=== PATIENT | male | born 1945 | race Caucasian/White ===

== ENCOUNTER → 2016-09-25 | Day surgery (SDC) | payer BC ==
[2016-09-14 11:11] VITALS: Ht 175.3 cm; Wt 84.1 kg
[~2016-09-25] VITALS: Ht 175.3 cm; Wt 84.1 kg
[~2016-09-25] MED LIST: ASPEC81 PO; ATOR-26 PO; ENDOSCOPIC MARKER 5 ML SYR ONE; EpINEphrine INJ 1MG/ML AMP 1 MG/ML AMP ONE; LIDOCAINE HCL 2% 2 ML VIAL (20MG/ML) ONE; LYR100 PO; LZL25 PO; METO25TA56 PO; MIDAZOLAM HCL 1 MG/ML 2ML VIAL ONE; NTRGSL/4 UT; ONDANSETRON INJ 2 MG/ML 2 ML VIAL ONE; PRLSR20 PO; PROPOFOL IV EMULSION 10 MG/ML 20 ML VIAL IV ONE; QUIN40TA18 PO; SODIUM CHLORIDE 0.9% 500ML 500 ML IV ONE; [UNRECOGNIZED DRUG - CODE] PO
[2016-09-25 09:11] VITALS: TEMP 36.9
--- NOTE | 2016-09-25 09:29 | Endo History and Physical ---
History & Physical Date of Service: Sep 25, 2016. Chief Complaint: Screening Referring Physician: CARISA Mosley History of Present Illness 70 yo CM who presents for screening colonoscopy. Past Surgical History Hx Cardiac Surgery: Yes (HEART CATH-1 STENT PLACED) Hx Internal Defibrillator: No Hx Pacemaker: No Hx Abdominal Surgery: No Hx of Implantable Prosthesis: No Hx Post-Op Nausea and Vomiting: No Hx Cancer Surgery: No Hx Thoracic Surgery: No Hx Orthopedic: No Hx Urinary Tract Surgery: No Family History Colon CA Social History Smoking Status: Former Smoker Hx Substance Use: No Hx Alcohol Use: Yes (4-5 [employer] DAILY) Allergies Coded Allergies: Clopidogrel (Verified Allergy, Intermediate, hives, 09/14/16) and other blood thinners unsure Penicillins (Verified Allergy, Intermediate, HIVES/RASH, 09/25/16) Iodinated Diagnostic Agents (Verified Allergy, Unknown, RASH/BP DROPPED AND KIDNEY FAILURE, 09/14/16) Current Medications Reported Home Medications Medications Dose Route/Sig Max Daily Dose Days Date Category Accupril (Quinapril HCl) 40 Mg Tab 40 Mg PO QAM 09/14/16 Reported Prilosec (Omeprazole) 20 Mg Capcr 20 Mg PO QAM 09/14/16 Reported Nitrostat (Nitroglycerin) 0.4 Mg Tab 0.4 Mg UT PRN 09/14/16 Reported Lopressor (Metoprolol Tartrate) 25 Mg Tab 25 Mg PO BID 09/14/16 Reported Indapamide 2.5 Mg Tab 1 Tab PO QAM 09/14/16 Reported Lyrica (Pregabalin) 100 Mg Cap 100 Mg PO TID 30 05/30/16 Rx Aspirin EC Low Dose (Aspirin) 81 Mg Ectab 81 Mg PO QAM 30 05/30/16 Rx Effient * (Prasugrel) 10 Mg Tab 10 Mg PO QAM 08/08/11 Reported Lipitor (Atorvastatin Calcium) 80 Mg Tab 80 Mg PO QPM 01/18/10 Reported Vital Signs Weight (Kilograms): 84.09 Height (Feet): 5 Height (Inches): 9 Date Time Temp Pulse Resp B/P Pulse Ox O2 Delivery O2 Flow Rate FiO2 09/25/16 09:11 36.9 78 16 132/86 96 Room Air Physical Exam General Appearance: WD/WN, no apparent distress Respiratory/Chest: Auscultation: breath sounds normal Cardiovascular: Heart Auscultation: RRR Abdomen: Bowel Sounds: normal Inspection & Palpation: soft, non-distended, no tenderness, guarding & rebound Assessment and Plan Assessment: 70 yo CM who presents for screening colonoscopy. Plan: Proceed with colonoscopy.
--- NOTE | 2016-09-25 10:01 | Discharge Instructions ---
Endoscopy Patient Instructions Date / Procedure(s) Performed Sep 25, 2016. Colonoscopy Allergy Information Coded Allergies: Clopidogrel (Verified Allergy, Intermediate, hives, 09/14/16) and other blood thinners unsure Penicillins (Verified Allergy, Intermediate, HIVES/RASH, 09/25/16) Iodinated Diagnostic Agents (Verified Allergy, Unknown, RASH/BP DROPPED AND KIDNEY FAILURE, 09/14/16) Discharge Date / Findings Sep 25, 2016. Colon polyps Diverticulosis Internal hemorrhoids Medication Instructions Stopped Medication(s): Effient was stopped on Saturday. OK to resume all medications today as prescribed Reported Home Medications Medications Dose Route/Sig Max Daily Dose Days Date Category Accupril (Quinapril HCl) 40 Mg Tab 40 Mg PO QAM 09/14/16 Reported Prilosec (Omeprazole) 20 Mg Capcr 20 Mg PO QAM 09/14/16 Reported Nitrostat (Nitroglycerin) 0.4 Mg Tab 0.4 Mg UT PRN 09/14/16 Reported Lopressor (Metoprolol Tartrate) 25 Mg Tab 25 Mg PO BID 09/14/16 Reported Indapamide 2.5 Mg Tab 1 Tab PO QAM 09/14/16 Reported Lyrica (Pregabalin) 100 Mg Cap 100 Mg PO TID 30 05/30/16 Rx Aspirin EC Low Dose (Aspirin) 81 Mg Ectab 81 Mg PO QAM 30 05/30/16 Rx Effient * (Prasugrel) 10 Mg Tab 10 Mg PO QAM 08/08/11 Reported Lipitor (Atorvastatin Calcium) 80 Mg Tab 80 Mg PO QPM 01/18/10 Reported Provider Instructions Activity Restrictions - No exercising or heavy lifting for 24 hours. - Do not drink alcohol the day of the procedure. - Do not drive a car or operate machinery until the day after the procedure. - Do not make any important decisions or sign important papers in 24 hours after the procedure. Following Day: - Return to full activity which may include returning to work/school. Diet Start your diet with liquids and light foods (jello, soup, juice, toast). Then eat your usual diet if not nauseated. Treatment For Common After Affects For mild abdominal pain, bloating, or excessive gas: - Rest - Eat lightly - Lie on right side Follow-Up Information Follow-up with CARISA Mosley as scheduled Anesthesia Information What You Should Know You have had a procedure that required some medicine to reduce anxiety and discomfort. This treatment is called moderate sedation. After receiving the treatment, you may be sleepy, but you will be able to breathe on your own. The effects of the treatment may last for several hours. Follow these instructions along with Activity/Diet recommendations noted above: * Do NOT do anything where dizziness or clumsiness would be dangerous. * Rest quietly at home today, then you can be up and about tomorrow. * Have a responsible person stay with you the rest of today. * You may have had an I.V. today. If so, you may take the dressing off later today. Recommendations Call your doctor if: * Trouble breathing * Continuous vomiting for more than 24 hours * Temperature above 101 degrees * Severe abdominal pain or bloating * Pain not relieved by pain medicine ordered * There is increased drainage or redness from any incision * A large amount of rectal bleeding greater than 2-3 tablespoons. (If you had a polyp/s removed or have hemorrhoids, a small amount of blood - from the rectum is to be expected.) * You have any unanswered questions or concerns. IN THE EVENT OF A SERIOUS EMERGENCY, GO TO THE NEAREST EMERGENCY ROOM Your discharge instructions were prepared by provider JoseA rmando Vides. Patient Instructions Signature Page Denzel Yang Patient (or Guardian) Signature/Date: I have read and understand the instructions given to me by my caregivers. Caregiver/RN/Doctor Signature/Date: The above-named patient and/or guardian has received patient instructions on this date. + Original Patient Signature Page (only) stays with chart. Please make copy for patient.
--- NOTE | 2016-09-25 10:09 | GI REPORT ---
Procedure Date: 09/25/2016 9:34 AM Procedure: Colonoscopy Indications: Screening for colorectal malignant neoplasm Medicines: Monitored Anesthesia Care Complications: No immediate complications. Estimated Blood Loss: Estimated blood loss: none. Procedure: Pre-Anesthesia Assessment: - Prior to the procedure, a History and Physical was performed, and patient medications and allergies were reviewed. The patient's tolerance of previous anesthesia was also reviewed. The risks and benefits of the procedure and the sedation options and risks were discussed with the patient. All questions were answered, and informed consent was obtained. Prior Anticoagulants: The patient last took anticoagulant medication 5 days prior to the procedure and last took aspirin on the day of the procedure. ASA Grade Assessment: II - A patient with mild systemic disease. After reviewing the risks and benefits, the patient was deemed in satisfactory condition to undergo the procedure. After I obtained informed consent, the scope was passed under direct vision. Throughout the procedure, the patient's blood pressure, pulse, and oxygen saturations were monitored continuously. The On-site loaner was introduced through the anus and advanced to the terminal ileum. The colonoscopy was performed without difficulty. The patient tolerated the procedure well. The quality of the bowel preparation was good. The terminal ileum, ileocecal valve, appendiceal orifice, and rectum were photographed. Findings: Two sessile polyps were found in the sigmoid colon and in the transverse colon. The polyps were 5 to 6 mm in size. These polyps were removed with a hot snare. Resection and retrieval were complete. A 20 mm polyp was found in the sigmoid colon. The polyp was pedunculated. Prior to polypectomy 3 cc of [id number] epinephrine was injected into the polyp stalk. The polyp was removed with a hot snare. Resection and retrieval were complete. To prevent bleeding after the polypectomy, two hemostatic clips were successfully placed (MR conditional). There was no bleeding at the end of the procedure. Area was tattooed with an injection of 4 mL of [place]ia ink. Multiple small-mouthed diverticula were found in the sigmoid colon. Non-bleeding internal hemorrhoids were found during retroflexion. The hemorrhoids were small. Impression: - Two 5 to 6 mm polyps in the sigmoid colon and in the transverse colon, removed with a hot snare. Resected and retrieved. - One 20 mm polyp in the sigmoid colon, removed with a hot snare. Resected and retrieved. Clips (MR conditional) were placed. Tattooed. - Diverticulosis in the sigmoid colon. - Non-bleeding internal hemorrhoids. Recommendation: - Resume previous diet. - Continue present medications. - Repeat colonoscopy for surveillance based on pathology results. - Return to primary care physician as previously scheduled. Jose Armando Vides, DO 09/25/2016 10:08:51 AM This report has been signed electronically. Note Initiated On: 09/25/2016 9:34 AM I attest to the content of the Intraoperative Record and orders documented therein, exceptions below
--- NOTE | 2016-09-25 10:11 | Anesthesiology Progress Note ---
Anesthesia Post Op Note Date & Time Sep 25, 2016 at 10:11 Vital Signs Pain Intensity: 0 Vital Signs Past 12 Hours Date Time Temp Pulse Resp B/P Pulse Ox O2 Delivery O2 Flow Rate FiO2 09/25/16 10:02 68 18 149/85 95 Room Air 09/25/16 09:11 36.9 78 16 132/86 96 Room Air Notes Mental Status: alert / awake / arousable, participated in evaluation Pt Amnestic to Procedure: Yes Nausea / Vomiting: adequately controlled Pain: adequately controlled Airway Patency, RR, SpO2: stable & adequate BP & HR: stable & adequate Hydration State: stable & adequate Anesthetic Complications: no major complications apparent
[2016-09-25 10:30] VITALS: BP 139/77; PULSE 66; O2SAT 93
== END | disposition home or self-care (01) ==
LOC: C.GI 08:47
PROVIDERS: ATTEND Internal Medicine
DX: Z12.11 Encounter for screening for malignant neoplasm of colon (principal); Z80.0 Family history of malignant neoplasm of digestive organs; D12.3 Benign neoplasm of transverse colon; D12.5 Benign neoplasm of sigmoid colon; K57.30 Diverticulosis of large intestine without perforation or abscess without bleeding; K64.8 Other hemorrhoids; Z79.82 Long term (current) use of aspirin; Z95.5 Presence of coronary angioplasty implant and graft; Z91.041 Radiographic dye allergy status

== ENCOUNTER → 2017-01-11 | Outpatient (CLI) | payer BC ==
[~2017-01-11] MED LIST changes: -ENDOSCOPIC MARKER 5 ML SYR ONE; -EpINEphrine INJ 1MG/ML AMP 1 MG/ML AMP ONE; -LIDOCAINE HCL 2% 2 ML VIAL (20MG/ML) ONE; -MIDAZOLAM HCL 1 MG/ML 2ML VIAL ONE; -ONDANSETRON INJ 2 MG/ML 2 ML VIAL ONE; -PROPOFOL IV EMULSION 10 MG/ML 20 ML VIAL IV ONE; -SODIUM CHLORIDE 0.9% 500ML 500 ML IV ONE
[2017-01-11 09:59] LABS: BASO % 0.5 %; BASO ABS # 0.04 K/uL (0-0.2); COMPLETE YES; EOS % 5.9 %; HEMATOCRIT 44.8 % (42-52); IG% 0.4 %; LYMPH % 28.1 %; LYMPH ABS # 2.18 K/uL (1.2-3.4); MEAN CELL VOLUME 95.9 fL (80-100); MEAN CORPUSCULAR HEMOGLOBIN 31.9 pg (25-34); MEAN CORPUSCULAR HGB CONC 33.3 g/dl (32-36); MEAN PLATELET VOLUME 10.9 fL (7.4-10.4); NEUT % 55.1 %; PLATELET COUNT 192 K/uL (130-400); RED BLOOD COUNT 4.67 M/uL (4.7-6.1); WHITE BLOOD COUNT 7.77 K/uL (4.8-10.8)
[2017-01-11 10:33] LABS: ALT/SGPT 48 U/L (12-78); BLOOD UREA NITROGEN 16 mg/dl (7-18); BUN/CREATININE RATIO 19.3 (10-20); CALCIUM 10.3 mg/dl (8.5-10.1); CARBON DIOXIDE 32 mmol/L (21-32); CHLORIDE 107 mmol/L (98-107); CREATININE 0.82 mg/dl (0.60-1.40); GLUCOSE 117 mg/dl (70-99); SODIUM 144 mmol/L (136-145)
[2017-01-11 10:36] LABS: AST/SGOT 37 U/L (15-37); CHOLESTEROL 184 mg/dl (0-200); HDL CHOLESTEROL 62 mg/dl; LDL CHOLESTEROL CALCULATED 99 mg/dl; TRIGLYCERIDES 117 mg/dl (0-150); VERY LOW DENSITY LIPOPROT CALC 23 mg/dl
[2017-01-11 10:38] LABS: ESTIMATED AVERAGE GLUCOSE 131 mg/dl; HA1C FLAG Normal (Normal)
== END | disposition home or self-care (01) ==
LOC: C.LAB1850 09:13
PROVIDERS: ATTEND Physician Assistant
DX: E78.00 Pure hypercholesterolemia, unspecified (principal); I25.10 Atherosclerotic heart disease of native coronary artery without angina pectoris; E11.9 Type 2 diabetes mellitus without complications

== ENCOUNTER → 2017-01-21 | Outpatient (CLI) | payer BC ==
--- NOTE | 2017-01-21 09:09 | DIAGNOSTIC IMAGING REPORT ---
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 The maxillary diameter is 2.5 cm. There is no evidence of iliac artery aneurysm. IMPRESSION: No evidence of abdominal aortic aneurysm. Electronically signed by: Eddie Goncalves M.D. 01/21/2017 9:07 AM Dictated Date/Time: 01/21/2017 9:06 AM
== END | disposition home or self-care (01) ==
LOC: C.ULTR 08:45
PROVIDERS: ATTEND Physician Assistant
DX: I25.10 Atherosclerotic heart disease of native coronary artery without angina pectoris (principal)

== ENCOUNTER → 2017-04-17 | Outpatient (CLI) | payer BC ==
[2017-04-17 13:15] LABS: BASO % 0.4 %; BASO ABS # 0.03 K/uL (0-0.2); COMPLETE YES; EOS % 3.6 %; HEMATOCRIT 41.6 % (42-52); IG% 0.4 %; LYMPH % 28.2 %; LYMPH ABS # 2.25 K/uL (1.2-3.4); MEAN CORPUSCULAR HEMOGLOBIN 32.9 pg (25-34); MEAN CORPUSCULAR HGB CONC 34.6 g/dl (32-36); MEAN PLATELET VOLUME 11.1 fL (7.4-10.4); MONO % 14.9 %; NEUT % 52.5 %; PLATELET COUNT 168 K/uL (130-400); RED BLOOD COUNT 4.38 M/uL (4.7-6.1); WHITE BLOOD COUNT 7.98 K/uL (4.8-10.8)
[2017-04-17 14:04] LABS: BLOOD UREA NITROGEN 16 mg/dl (7-18); BUN/CREATININE RATIO 20.7 (10-20); CALCIUM 10.6 mg/dl (8.5-10.1); CARBON DIOXIDE 29 mmol/L (21-32); CHLORIDE 102 mmol/L (98-107); CREATININE 0.79 mg/dl (0.60-1.40); GLUCOSE 99 mg/dl (70-99); POTASSIUM 3.6 mmol/L (3.5-5.1); SODIUM 137 mmol/L (136-145)
[2017-04-17 14:22] LABS: ESTIMATED AVERAGE GLUCOSE 134 mg/dl; HA1C FLAG Normal (Normal)
== END | disposition home or self-care (01) ==
LOC: C.LAB1850 11:58
PROVIDERS: ATTEND Physician Assistant
DX: E11.9 Type 2 diabetes mellitus without complications (principal)

== ENCOUNTER → 2017-07-22 | Outpatient (CLI) | payer BC ==
[2017-07-22 12:17] LABS: ESTIMATED AVERAGE GLUCOSE 137 mg/dl; HA1C FLAG Normal (Normal)
== END | disposition home or self-care (01) ==
LOC: C.LAB1850 10:15
PROVIDERS: ATTEND Internal Medicine
DX: E78.00 Pure hypercholesterolemia, unspecified (principal)

== ENCOUNTER → 2017-07-23 | Outpatient (CLI) | payer BC ==
--- NOTE | 2017-07-23 14:22 | DIAGNOSTIC IMAGING REPORT ---
RIGHT HIP 2 VIEWS CLINICAL HISTORY: Sciatica. Right hip pain. FINDINGS: AP and frog-leg views of the right hip are correlated with pelvic CT dated 05/28/2016. The skeletal structures are osteopenic. No fracture is seen. There is mild arthritic change and joint space narrowing in the right hip. The right sacroiliac joint is normal in appearance. The overlying soft tissues are within normal limits. Surgical clips are present along the spermatic cord bilaterally. IMPRESSION: Osteopenia and minimal arthritic change as above. No acute bony abnormality is seen in the right hip. Electronically signed by: Collins Arreola M.D. 07/23/2017 2:21 PM Dictated Date/Time: 07/23/2017 2:20 PM
== END | disposition home or self-care (01) ==
LOC: C.RAD 13:57
PROVIDERS: ATTEND Internal Medicine
DX: M54.30 Sciatica, unspecified side (principal)

== ENCOUNTER 2022-03-24 22:18 | Observation (INO) ==
[2022-03-24] MEDS ORDERED: ONDANSETRON INJ 2 MG/ML 2 ML VIAL IV STA (22:57)
[2022-03-24] MEDS ORDERED: SODIUM CHLORIDE 0.9% 1000ML 1,000 ML IV SCH (23:00)
[2022-03-24 23:08] LABS: Basophils # (auto) 0.07 K/uL (0-0.2); Basophils % (auto) 0.8 %; Eosinophils # (auto) 0.33 K/uL (0-0.50); Eosinophils % (auto) 3.7 %; Hematocrit (blood only) 35.8 % (40.1-51.0); Hemoglobin 12.3 g/dl (14.0-18.0); Immature Granulocytes # (auto) 0.04 K/uL (0.00-0.02); Immature Granulocytes % (auto) 0.5 %; Lymphocytes # (auto) 2.58 K/uL (1.2-3.4); Lymphocytes % (auto) 29.1 %; Mean Corpuscular Hemoglobin 32.9 pg (25.0-34.0); Mean Corpuscular Hgb Conc 34.4 g/dL (32.0-36.0); Mean Corpuscular Volume 95.7 fL (80.0-100.0); Mean Platelet Volume 11.2 fL (9.4-12.4); Monocytes # (auto) 0.86 K/uL (0.24-0.82); Monocytes % (auto) 9.7 %; Neutrophils % (auto) 56.2 %; Platelet Count 162 K/uL (130-400); RDW Coefficient of Variation 13.2 % (11.5-14.5); RDW Standard Deviation 46.1 fL (36.4-46.3); Red Blood Count 3.74 M/uL (4.63-6.08); White Blood Count 8.88 K/ul (4.8-10.8)
--- NOTE | 2022-03-24 23:17 | Emergency Department Note ---
Impression & Plan Hypotension, DAKOTA (acute kidney injury), Syncope, Precordial chest pain, Alcohol use, Acute dehydration ED Provider Note NAME: HITESH HUNG AGE: 76 SEX: M : 1945 ARRIVES VIA: Ambulance INFORMANT: [Patient] ED PROVIDER(S): [Collins Reyez MD] CHIEF COMPLAINT: Hypotension, chest pain HISTORY OF PRESENT ILLNESS: The patient is a 76-year-old male presents to the ER with some lower blood pressure and chest pain. The patient was golfing today. He felt he was dr inking enough liquid. After the golf tournament, he had dinner. He had to drinks of scotch and some red wine. The patient went home. At home, sitting on his patio, he began developing some central chest pain that was a 7 on a scale 1 out of 10. Pain lasted 30 minutes. He did vomit once. He thinks he may have actually lost consciousness for a brief timeframe. This all began 2 hours ago. The patient currently feels better. He still is a bit tired but there is no more chest pain, he is not short of breath. He does have a history of a cardiac stent x1. The patient was in baseline health today, he had no issues throughout the golf tournament ,no chest pain or unusual shortness of breath. REVIEW OF SYSTEMS: See HPI for pertinent positives and negatives. A total of ten systems were reviewed and were otherwise negative. PMHx/PSHx: See Below SOCIAL HISTORY: See Below. PHYSICAL EXAM: GENERAL: Patient is in no acute distress. HEENT: No acute trauma, normocephalic atraumatic, mucous membranes moist, no nasal congestion, no scleral icterus. NECK: No stridor, no adenopathy, no meningismus, trachea is midline. LUNGS: Clear to auscultation bilaterally, no wheeze, no rhonchi, breath sounds equal. HEART: Without murmurs gallops or rubs, regular rate and rhythm. ABDOMEN: Soft, nontender, bowel sounds positive, no peritonitis. EXTREMITIES: No cyanosis or edema, full range of motion of all the joints without pain or difficulty, no signs for acute trauma. NEUROLOGIC: Oriented x 3, no acute motor or sensory deficits, no focal weakness. SKIN: No rash, no jaundice, no diaphoresis. Rectal: Brown stool, heme-negative. DIFFERENTIAL DIAGNOSIS: Cardiac ischemia, aortic dissection, dehydration, pulmonary embolism, pneumothorax, pneumonia, pericarditis, myocarditis, esophageal rupture, GERD, cholecystitis, pancreatitis, musculoskeletal, as well as other pathologies. EMERGENCY DEPARTMENT COURSE/PROCEDURES: ECG: Indication was chest pain. The ECG shows a normal sinus rhythm with a rate of 71. There is no ST elevation, no PVCs. The QTc is 410. Continuous Cardiac Monitoring: An order was placed for continuous cardiac monitoring. The monitor shows a rate of 71 with normal sinus rhythm. Critical Care Note: I have personally spent 40 minutes of critical care time in the direct management of this patient. This includes bedside care, interpretation of diagnostic studies, and testing, discussion with consultants, patient, and family members, and other required patient management activities. This 40 minutes is in excess of all separately billable procedures. MEDICAL DECISION MAKING: There is no leukocytosis. The patient is anemic with a hemoglobin of 12. I did perform a rectal exam, stool was brown and heme negative. There was a normal platelet count. Renal panel testing showed an elevation to the creatinine consistent with some acute kidney injury/dehydration. Lactic acid level was elevated consistent with dehydration and/or infection. Magnesium was low at 1.5. No concerning liver enzyme elevation. Patient appeared to be in a euthyroid state. Alcohol level returned at 179. COVID test returned n egative. The patient was given IV saline, 1 L. He received IV magnesium. The patient presents with what sounds like a syncopal episode, some precordial chest pain and an episode of vomiting. He was found to be intoxicated with alcohol. He was in acute kidney injury and did present hypotensive. With his findings, was his presentation, further work-up is warranted. I did speak with the patient and case management, the on-call hospitalist was consulted. Patient is feeling improved since being treated here in the ED. Past Med/Surg History Medical History Arthralgia of multiple sites ASCVD (arteriosclerotic cardiovascular disease) Coronary artery disease Diverticulitis Hypercholesterolemia Hypertension Mild sleep apnea Nephrolithiasis No pertinent family history Surgical History No pertinent past surgical history Family History Father Prostate cancer Diabetes Son Diabetes Denies family history of Ovarian cancer Myocardial infarction Breast cancer Colorectal cancer Social History Smoking Status: Former smoker Tobacco Type: Cigars Second Hand Exposure: No; Hx Alcohol Use: Yes Alcohol type: hard liquor Hx Substance Use: No Preferred Language: Urdu Communication Ability: Effective Visual Impairment: No Limitations Hearing Ability: Normal [place] Required: No Beliefs That Will Affect Care: None Current Living Situation: Spouse current occupational status: employed current occupation: [employer] Safe at Home: Yes Childhood Exposure to Second-Hand Smoke: No Dental Care, Regularly: Yes Physical Activity Frequency Comment: Due to foot pain unable to excercise at the present time Seatbelt Use: always Sunscreen Use: No Assistive Devices: Glasses Allergies Allergies Allergy/AdvReac Type Severity Reaction Status Date / Time clopidogrel Allergy Intermediate hives Verified 03/24/22 23:53 Penicillins Allergy Intermediate HIVES/RASH Verified 03/24/22 23:53 Iodinated Contrast Media AdvReac Severe RASH/BP Verified 03/24/22 23:53 DROPPED AND KIDNEY FAILURE Home Meds Home Medications Medication Instructions Recorded Confirmed loratadine 10 mg tablet (Claritin) 10 mg PO DAILY PRN Congestion 01/12/20 03/24/22 cholecalciferol (vitamin D3) 25 25 mcg PO DAILY 03/08/22 03/24/22 mcg (1,000 unit) capsule metoprolol tartrate 25 mg tablet 25 mg PO DAILY 03/08/22 03/24/22 multivitamin 1 tab PO DAILY 03/08/22 03/24/22 omega [id number] oil 900 1 cap PO DAILY 03/08/22 03/24/22 mg-1,400 mg capsule,delayed release (Fish Oil) Saccharomyces boulardii 250 mg 500 mg PO DAILY 03/24/22 03/24/22 capsule aspirin 81 mg tablet,delayed 81 mg PO [id number] 03/24/22 03/24/22 release psyllium husk 3.4 gram/5.4 gram 1 tbsp PO DAILY 03/24/22 03/24/22 oral powder (Metamucil) Previous Rx's Medication Instructions Recorded prasugrel 10 mg tablet 10 mg PO DAILY #90 tabs 05/19/21 duloxetine 20 mg capsule,delayed 20 mg PO DAILY #90 caps 06/20/21 release pregabalin 100 mg capsule 100 mg PO TID #270 caps 11/03/21 atorvastatin 80 mg tablet 80 mg PO DAILY #90 tabs 12/08/21 omeprazole 20 mg capsule,delayed 20 mg PO DAILY #90 caps 01/08/22 release quinapril 40 mg tablet 40 mg PO DAILY #90 tabs 01/08/22 indapamide 1.25 mg tablet 1.25 mg PO QAM #90 tabs 03/08/22 nitroglycerin 0.4 mg sublingual 0.4 mg sublingual Q5M PRN chest 03/20/22 tablet pain #25 tabs Results & Data (ED) Vital Signs Vital Signs - 24 hr 03/24/22 22:23 03/24/22 22:33 03/24/22 22:33 Temperature 36.7 C Temperature Source Oral Pulse Rate 71 Pulse Rate [Finger] 71 Pulse Rate from SpO2 Sensor Pulse Rhythm Respiratory Rate 19 19 Respiratory Effort / Characteristics Non-Labored Spontaneous Non-Labored Spontaneous Respiratory Depth Normal Normal Blood Pressure 96/56 L Blood Pressure [Right Arm] 96/56 L Blood Pressure Mean 69 Blood Pressure Mean [Right Arm] 69 Blood Pressure Position Sitting Blood Pressure Position [Right Arm] Sitting Pulse Oximetry 94 94 94 Oxygen Delivery Method Room Air Room Air Room Air Sepsis Recent Fever Within 48 Hours No Sepsis New/Unexplained Change in Mental Status No Sepsis Action Taken by Nursing No Action Required 03/24/22 23:28 03/24/22 22:31 03/24/22 22:34 Temperature Temperature Source Pulse Rate 69 71 Pulse Rate [Finger] Pulse Rate from SpO2 Sensor 71 Pulse Rhythm Regular Respiratory Rate 21 Respiratory Effort / Characteristics Respiratory Depth Blood Pressure 92/53 L 85/49 L Blood Pressure [Right Arm] Blood Pressure Mean 66 61 Blood Pressure Mean [Right Arm] Blood Pressure Position Blood Pressure Position [Right Arm] Pulse Oximetry 95 94 Oxygen Delivery Method Room Air Sepsis Recent Fever Within 48 Hours Sepsis New/Unexplained Change in Mental Status Sepsis Action Taken by Nursing 03/24/22 22:40 03/24/22 22:50 03/24/22 23:00 Temperature Temperature Source Pulse Rate 70 69 72 Pulse Rate [Finger] Pulse Rate from SpO2 Sensor 70 69 71 Pulse Rhythm Respiratory Rate 17 12 16 Respiratory Effort / Characteristics Respiratory Depth Blood Pressure 88/51 L 93/55 L 92/54 L Blood Pressure [Right Arm] Blood Pressure Mean 63 67 66 Blood Pressure Mean [Right Arm] Blood Pressure Position Blood Pressure Position [Right Arm] Pulse Oximetry 91 93 91 Oxygen Delivery Method Sepsis Recent Fever Within 48 Hours Sepsis New/Unexplained Change in Mental Status Sepsis Action Taken by Nursing 03/24/22 23:10 03/24/22 23:20 03/24/22 23:30 Temperature Temperature Source Pulse Rate 70 70 67 Pulse Rate [Finger] Pulse Rate from SpO2 Sensor 69 71 68 Pulse Rhythm Respiratory Rate 19 17 17 Respiratory Effort / Characteristics Respiratory Depth Blood Pressure 93/44 L 93/49 L 92/54 L Blood Pressure [Right Arm] Blood Pressure Mean 60 63 66 Blood Pressure Mean [Right Arm] Blood Pressure Position Blood Pressure Position [Right Arm] Pulse Oximetry 95 95 95 Oxygen Delivery Method Sepsis Recent Fever Within 48 Hours Sepsis New/Unexplained Change in Mental Status Sepsis Action Taken by [facility] Medications Current Medication List: was personally reviewed by me Laboratory Data Attestation: I reviewed the patient's lab results. Result diagrams: 03/25/22 06:43 03/25/22 06:43 Lab Results 03/24/22 03/24/22 03/24/22 Range/Units 22:25 22:25 22:25 WBC 8.88 (4.8-10.8) K/ul RBC 3.74 L (4.63-6.08) M/uL Hgb 12.3 L (14.0-18.0) g/dl Hct 35.8 L (40.1-51.0) % MCV 95.7 (80.0-100.0) fL MCH 32.9 (25.0-34.0) pg MCHC 34.4 (32.0-36.0) g/dL RDW Std Deviation 46.1 (36.4-46.3) fL RDW Coeff of [place] 13.2 (11.5-14.5) % Plt Count 162 (130-400) K/uL MPV 11.2 (9.4-12.4) fL Immature Gran % (Auto) 0.5 % Neut % (Auto) 56.2 % Lymph % (Auto) 29.1 % [place] % (Auto) 9.7 % Eos % (Auto) 3.7 % Baso % (Auto) 0.8 % Neut # (Auto) 5.00 (1.4-6.5) K/uL Lymph # (Auto) 2.58 (1.2-3.4) K/uL [place] # (Auto) 0.86 H (0.24-0.82) K/uL Eos # (Auto) 0.33 (0-0.50) K/uL Baso # (Auto) 0.07 (0-0.2) K/uL Immature Gran # (Auto) 0.04 H (0.00-0.02) K/uL Sodium 137 (136-145) mmol/L Potassium 3.5 (3.5-5.1) mmol/L Chloride 101 (98-107) mmol/L Carbon Dioxide 24 (21-32) mmol/L Anion Gap 12 H (3-11) BUN 36 H (6-23) mg/dl Creatinine 2.03 H (0.6-1.4) mg/dl Est Cr Clr Drug Dosing 34.0 ml/min Est GFR ( Amer) 36.1 ml/min Est GFR (Non-Af Amer) 31.1 ml/min BUN/Creatinine Ratio 17.7 (10-20) Glucose 138 H (70-99(Fasting)) mg/dl Lactate (0.4-2.0) mmol/L Calcium 10.9 H (8.5-10.1) mg/dl Magnesium 1.5 L (1.7-2.4) mg/dl Total Bilirubin 0.2 (0.2-1.0) mg/dl AST 33 (13-39) U/L ALT 24 (7-52) U/L Alkaline Phosphatase 74 (34-104) U/L Troponin I High Sens 5.3 (0-20) pg/ml Total Protein 6.7 (6.0-8.3) gm/dl Albumin 4.0 (3.4-5.0) gm/dl Globulin 2.7 (2.5-4.0) gm/dl Albumin/Globulin Ratio 1.5 (0.9-2) TSH 2.539 (0.300-4.500) uIu/ml Ethyl Alcohol mg/dL (<10.0) mg/dl SARS-CoV-2 (PCR) (Negative) 08/06/22 08/06/22 08/06/22 Range/Units 22:25 23:02 23:27 WBC (4.8-10.8) K/ul RBC (4.63-6.08) M/uL Hgb (14.0-18.0) g/dl Hct (40.1-51.0) % MCV (80.0-100.0) fL MCH (25.0-34.0) pg MCHC (32.0-36.0) g/dL RDW Std Deviation (36.4-46.3) fL RDW Coeff of [place] (11.5-14.5) % Plt Count (130-400) K/uL MPV (9.4-12.4) fL Immature Gran % (Auto) % Neut % (Auto) % Lymph % (Auto) % [place] % (Auto) % Eos % (Auto) % Baso % (Auto) % Neut # (Auto) (1.4-6.5) K/uL Lymph # (Auto) (1.2-3.4) K/uL [place] # (Auto) (0.24-0.82) K/uL Eos # (Auto) (0-0.50) K/uL Baso # (Auto) (0-0.2) K/uL Immature Gran # (Auto) (0.00-0.02) K/uL Sodium (136-145) mmol/L Potassium (3.5-5.1) mmol/L Chloride (98-107) mmol/L Carbon Dioxide (21-32) mmol/L Anion Gap (3-11) BUN (6-23) mg/dl Creatinine (0.6-1.4) mg/dl Est Cr Clr Drug Dosing ml/min Est GFR ( Amer) ml/min Est GFR (Non-Af Amer) ml/min BUN/Creatinine Ratio (10-20) Glucose (70-99(Fasting)) mg/dl Lactate 2.9 H* (0.4-2.0) mmol/L Calcium (8.5-10.1) mg/dl Magnesium (1.7-2.4) mg/dl Total Bilirubin (0.2-1.0) mg/dl AST (13-39) U/L ALT (7-52) U/L Alkaline Phosphatase (34-104) U/L Troponin I High Sens (0-20) pg/ml Total Protein (6.0-8.3) gm/dl Albumin (3.4-5.0) gm/dl Globulin (2.5-4.0) gm/dl Albumin/Globulin Ratio (0.9-2) TSH (0.300-4.500) uIu/ml Ethyl Alcohol mg/dL 179.3 H (<10.0) mg/dl SARS-CoV-2 (PCR) NEGATIVE (Negative) Administered Medications Discontinued Medications Atorvastatin Calcium (Atorvastatin 40 Mg Tab) 80 mg PO DAILY JIM Stop: 04/24/22 08:59 Last Admin: 03/25/22 08:03 Dose: 80 mg Documented By: JAKI Duloxetine HCl (Duloxetine Hcl 20 Mg Cap) 20 mg PO DAILY JIM Stop: 04/24/22 08:59 Last Admin: 03/25/22 08:04 Dose: Not Given Documented By: JAKI Sodium Chloride (Nss 1000ml) 1,000 mls @ 999 mls/hr IV .Q1H1M JIM Stop: 03/25/22 00:00 Last Infusion: 03/24/22 23:16 Dose: 0 mls/hr Documented By: Admin: 03/24/22 23:16 Dose: 999 mls/hr Documented By: CHARLES Magnesium Sulfate/Dextrose (Magnesium Sulfate / D5w) 1 gm in 100 mls @ 100 mls/hr IV NOW STA Stop: 03/25/22 01:03 Last Infusion: 03/25/22 01:28 Dose: 0 mls/hr Documented By: Admin: 03/25/22 00:12 Dose: 100 mls/hr Documented By: CARLOS A Sodium Chloride (Nss 1000ml) 500 mls @ 999 mls/hr IV .Q31M ONE Stop: 03/25/22 00:34 Last Infusion: 03/25/22 01:29 Dose: 0 mls/hr Documented By: Admin: 03/25/22 00:13 Dose: 999 mls/hr Documented By: CARLOS A Sodium Chloride (Nss 1000ml) 1,000 mls @ 80 mls/hr IV .[id number] JIM Stop: 03/25/22 13:44 Last Infusion: 03/25/22 14:02 Dose: 0 mls/hr Documented By: Admin: 03/25/22 01:38 Dose: 80 mls/hr Documented By: CHARLES Magnesium Sulfate/Dextrose (Magnesium Sulfate / D5w) 1 gm in 100 mls @ 50 mls/hr IV ONE ONE Stop: 03/25/22 03:11 Last Infusion: 03/25/22 04:00 Dose: 0 mls/hr Documented By: Admin: 03/25/22 01:38 Dose: 50 mls/hr Documented By: CHARLES Magnesium Sulfate/Dextrose (Magnesium Sulfate / D5w) 1 gm in 100 mls @ 50 mls/hr IV Q2H JIM Stop: 03/25/22 20:14 Last Infusion: 03/25/22 16:05 Dose: 0 mls/hr Documented By: Admin: 03/25/22 14:37 Dose: 50 mls/hr Documented By: Infusion: 03/25/22 14:33 Dose: 50 mls/hr Documented By: Admin: 03/25/22 12:33 Dose: 50 mls/hr Documented By: JAKI Metoprolol Tartrate (Metoprolol Tartrate 25 Mg Tab) 25 mg PO DAILY JIM Stop: 04/24/22 08:59 Last Admin: 03/25/22 08:03 Dose: 25 mg Documented By: JAKI Ondansetron HCl (Ondansetron Inj 2 Mg/Ml 2 Ml Vial) 4 mg IV NOW STA Stop: 03/24/22 22:58 Last Admin: 03/24/22 23:16 Dose: Not Given Documented By: CHARLES Pantoprazole Sodium (Pantoprazole 40 Mg Tab) 40 mg PO DAILY JIM Stop: 04/24/22 08:59 Last Admin: 03/25/22 08:04 Dose: 40 mg Documented By: JAKI Prasugrel (Prasugrel Tab 10 Mg Tab) 10 mg PO DAILY JIM Stop: 04/24/22 08:59 Last Admin: 03/25/22 08:05 Dose: 10 mg Documented By: JAKI Pregabalin (Pregabalin 100 Mg Cap) 100 mg PO TID JIM Stop: 04/24/22 08:59 Last Admin: 03/25/22 13:54 Dose: 100 mg Documented By: Admin: 03/25/22 08:07 Dose: 100 mg Documented By: JAKI Psyllium Hydrophilic Mucilloid (Psyllium Or Guar Gum Fiber Powder Packet) 1 pkt PO DAILY JIM Stop: 04/24/22 08:59 Last Admin: 03/25/22 08:05 Dose: Not Given Documented By: JAKI Vitamin D (Cholecalciferol 1,000 Units 25 Mcg Tab) 1,000 units PO DAILY JIM Stop: 04/24/22 08:59 Last Admin: 03/25/22 08:05 Dose: 1,000 units Documented By: JAKI Discharge Plan Visit Data Chief Complaint: Hypotension ED Provider: Collins Reyez Discharge Problem: Hypotension, DAKOTA (acute kidney injury), Syncope, Precordial chest pain, Alcohol use, Acute dehydration Patient Disposition: Admitted As Inpatient Condition: Fair Discharge Instructions Interventions: ED Discharge Assessment Last Done: 03/25/22 02:06
[2022-03-24 23:38] LABS: Albumin Globulin Ratio 1.5 (0.9-2); BUN Creatinine Ratio 17.7 (10-20); Bilirubin,Total 0.2 mg/dl (0.2-1.0); Calcium 10.9 mg/dl (8.5-10.1); Est GFR (African American) 36.1 ml/min; Est GFR (Non-African American) 31.1 ml/min; Globulin 2.7 gm/dl (2.5-4.0); Magnesium 1.5 mg/dl (1.7-2.4); Potassium 3.5 mmol/L (3.5-5.1); Total Protein 6.7 gm/dl (6.0-8.3)
[2022-03-24 23:44] LABS: Troponin I High Sensitivity 5.3 pg/ml (0-20)
[2022-03-25] MEDS ORDERED: MAGNESIUM SULFATE / D5W 1 GM/100 ML BAG IV STA (00:04)
[2022-03-25] MEDS ORDERED: SODIUM CHLORIDE 0.9% 1000ML 500 ML IV ONE (00:04)
--- NOTE | 2022-03-25 01:11 | History & Physical Report ---
Date of Service March 25, 2022 Assessment & Plan (1) Chest pain: Plan: Chest pain/CAD/hypertension/ASCVD/stented coronary artery- The patient will be admitted to telemetry for serial cardiac enzymes, serial EKG's, cardiac rhythm monitoring and a 2-D echocardiogram with Dopplers. Patient symptomatology is somewhat difficult to completely characterize due to his active alcohol intake during this interval. Continue aspirin, atorvastatin, metoprolol tartrate, nitroglycerin sublingual as needed, prasugrel. Holding quinapril and indapamide due to acute kidney injury (2) Coronary artery disease: Plan: See above (3) Hypertension: Plan: See above (4) ASCVD (arteriosclerotic cardiovascular disease): Plan: See above (5) Hypomagnesemia: Plan: Magnesium 1.5 on admission, and potassium 3.5 Magnesium will replace with 2 g and magnesium sulfate IV. Will hold indapamide and quinapril as noted, to allow potassium to normalize as well. No ectopy on monitor, so unlikely, but still possible, that symptomatology may been related to rapid heart rate (6) Acute kidney injury: Plan: Creatinine 2.03 upon admission, with baseline 0.85. Likely combination of golfing for 2 days with insufficient water intake, alcohol use, and being on indapamide and quinapril in the situations both of which will be held. (7) Hypercholesterolemia: Plan: Continue atorvastatin 80 mg daily (8) Type 2 diabetes mellitus: Plan: On no specific treatment, and glucose was 138 upon admission (9) Peripheral neuropathy: Plan: Continue pregabalin (10) Gastroesophageal reflux disease: Plan: Continue omeprazole/pantoprazole daily (11) Alcohol intoxication: Plan: Alcohol level 179.3 upon admission Part of his symptomatology may be related to direct irritation of stomach lining and reflux by alcohol He received 2 L normal saline in ED via IV bolus, and will be placed on NSS at 80 mils per hour x1 more liter Patient remains in hospital longer than lunchtime to suppertime, will consider AWSS protocol History of Present Illness Chief Complaint: The patient presents to the emergency department with complaint of chest discomfort and lower blood pressure than normal. Primary Care Provider: Giuseppe Ramos MD The patient is a 76-year-old male with a past medical history including diabetes mellitus type 2, peripheral neuropathy, CAD, nephrolithiasis, hypercalcemia, ASCVD, hypercholesterolemia, hypertension, diverticulosis, GERD, and osteoarthritis. Patient reports that he was golfing for the past 2 days, and did not have as much fluid intake as he probably should have. At the end of day this evening, he had 2 drinks, and a glass of red wine. After sitting down on his patio, at about 2 hours prior to arrival here, he developed some centralized chest pain on a scale of 7 out of 10 that lasted about 30 minutes. He reports he did vomit once and he thinks he may have actually lost consciousness during this timeframe. He does have a history of coronary artery stent, and because of symptoms, he called family, and was brought to emergency department for a ssessment. Of note, the patient's history is considered partially reliable, as his alcohol level was 179.3 upon testing in the ED. Other significant laboratories: Calcium 10.9, magnesium 1.5, potassium 3.5, creatinine 2.03, glucose 138, hemoglobin 12.3, hematocrit 35.8, lactate 2.9. Patient received from the ED: 2 L normal saline IV bolus, Zofran 4 mg IV, magnesium 1 g IV. Patient did report feeling somewhat better after receiving IV fluid rehydration Allergies Allergy/AdvReac Type Severity Reaction Status Date / Time clopidogrel Allergy Intermediate hives Verified 03/24/22 23:53 Penicillins Allergy Intermediate HIVES/RASH Verified 03/24/22 23:53 Iodinated Contrast Media AdvReac Severe RASH/BP Verified 03/24/22 23:53 DROPPED AND KIDNEY FAILURE Home Medications Medication Instructions Recorded Confirmed Type loratadine 10 mg tablet (Claritin) 10 mg PO DAILY PRN Congestion 01/12/20 03/24/22 History prasugrel 10 mg tablet 10 mg PO DAILY #90 tabs 05/19/21 03/24/22 Rx duloxetine 20 mg capsule,delayed 20 mg PO DAILY #90 caps 06/20/21 03/24/22 Rx release pregabalin 100 mg capsule 100 mg PO TID #270 caps 11/03/21 03/24/22 Rx atorvastatin 80 mg tablet 80 mg PO DAILY #90 tabs 12/08/21 03/24/22 Rx omeprazole 20 mg capsule,delayed 20 mg PO DAILY #90 caps 01/08/22 03/24/22 Rx release quinapril 40 mg tablet 40 mg PO DAILY #90 tabs 01/08/22 03/24/22 Rx cholecalciferol (vitamin D3) 25 25 mcg PO DAILY 03/08/22 03/24/22 History mcg (1,000 unit) capsule indapamide 1.25 mg tablet 1.25 mg PO QAM #90 tabs 03/08/22 03/24/22 Rx metoprolol tartrate 25 mg tablet 25 mg PO DAILY 03/08/22 03/24/22 History multivitamin 1 tab PO DAILY 03/08/22 03/24/22 History omega 5-elz-lvf-fish oil 900 1 cap PO DAILY 03/08/22 03/24/22 History mg-1,400 mg capsule,delayed release (Fish Oil) nitroglycerin 0.4 mg sublingual 0.4 mg sublingual Q5M PRN chest 03/20/22 03/24/22 Rx tablet pain #25 tabs Saccharomyces boulardii 250 mg 500 mg PO DAILY 03/24/22 03/24/22 History capsule aspirin 81 mg tablet,delayed 81 mg PO 3XWK 03/24/22 03/24/22 History release psyllium husk 3.4 gram/5.4 gram 1 tbsp PO DAILY 03/24/22 03/24/22 History oral powder (Metamucil) Past Med/Surg History Medical History Arthralgia of multiple sites ASCVD (arteriosclerotic cardiovascular disease) Coronary artery disease Diverticulitis Hypercholesterolemia Hypertension Mild sleep apnea Nephrolithiasis No pertinent family history Surgical History No pertinent past surgical history Family History Father Prostate cancer Diabetes Son Diabetes Denies family history of Ovarian cancer Myocardial infarction Breast cancer Colorectal cancer Social History Smoking Status: Former smoker Tobacco Type: Cigars Second Hand Exposure: No; Do You Dip or Chew Tobacco: No; Tobacco Cessation Education Requested by Patient: No Hx Alcohol Use: Yes Alcohol type: hard liquor Hx Substance Use: No Preferred Language: Korean Communication Ability: Effective Visual Impairment: No Limitations Hearing Ability: Normal Infant Teacher Required: No Beliefs That Will Affect Care: None Current Living Situation: Spouse current occupational status: employed current occupation: Plating Machine Operator Other Information That Helps Us Care for You: No Feels Safe at Home: Yes Safety Concerns: Feels Safe At This Time Childhood Exposure to Second-Hand Smoke: No Dental Care, Regularly: Yes Physical Activity Frequency Comment: Due to foot pain unable to excercise at the present time Seatbelt Use: always Sunscreen Use: No Assistive Devices: Glasses Review of Systems Review of Systems: The patient denies palpitations, shortness of breath, dyspnea on exertion, cough, lower extremity swelling, sore throat, fevers, chills, sweats, diarrhea , constipation, abdominal pain, pelvic pain, blood in urine or stool, dysuria, urinary frequency or urgency, lightheadedness, dizziness, headache, rash, abnormal bruising or bleeding, imbalance, focal weakness, numbness or tingling in arms or legs, generalized arthralgias or myalgias, back or neck pain, or night sweats. The review of systems is otherwise negative other than for that already noted above, and at least 10 systems have been reviewed. Physical Exam Physical Exam: The patient is awake, alert and oriented 3, well developed and well nourished, normocephalic and atraumatic, lying in bed and in no acute distress. HEENT--PERRL, EOMI, mucous membranes and oropharynx dry. Neck--supple. No JVD. No bruits. Thyroid normal, trachea midline, no adenopath y. Heart--normal S1 and S2. No murmurs, rubs or gallops. Lungs--clear bilaterally, no respiratory distress, no accessory muscle use. Abdomen--normal bowel sounds and soft. Nontender. Nondistended, no hernias or masses, no organomegaly. Extremities--no cyanosis or clubbing. No edema. There are good distal pulses b/l. Dermatologic--normal skin turgor, normal color, no abnormal lymph nodes, no rash . Neurologic--cranial nerves II through XII grossly intact. Rheumatologic--normal range of motion. Psychiatric--normal affect. Results & Data Results & Data ([facility]) Vital Signs (Past 12 Hours) Vital Signs Temp Pulse Pulse Resp BP BP Pulse Ox 03/24/22 23:30 67 17 92/54 L 95 03/24/22 23:20 70 17 93/49 L 95 03/24/22 23:10 70 19 93/44 L 95 03/24/22 23:00 72 16 92/54 L 91 03/24/22 22:50 69 12 93/55 L 93 03/24/22 22:40 70 17 88/51 L 91 03/24/22 22:34 85/49 L 03/24/22 22:31 71 21 92/53 L 94 03/24/22 23:28 69 95 03/24/22 22:33 71 19 96/56 L 94 03/24/22 22:33 94 03/24/22 22:23 36.7 C 71 19 96/56 L 94 O2 Del Method 03/24/22 23:30 03/24/22 23:20 03/24/22 23:10 03/24/22 23:00 03/24/22 22:50 03/24/22 22:40 03/24/22 22:34 03/24/22 22:31 03/24/22 23:28 Room Air 03/24/22 22:33 Room Air 03/24/22 22:33 Room Air 03/24/22 22:23 Room Air Laboratory Results Laboratory Results WBC 8.88 K/ul (4.8-10.8) 03/24/22 22:25 RBC 3.74 M/uL (4.63-6.08) L 03/24/22 22:25 Hgb 12.3 g/dl (14.0-18.0) L 03/24/22 22:25 Hct 35.8 % (40.1-51.0) L 03/24/22 22:25 MCV 95.7 fL (80.0-100.0) 03/24/22 22:25 MCH 32.9 pg (25.0-34.0) 03/24/22 22:25 MCHC 34.4 g/dL (32.0-36.0) 03/24/22 22:25 RDW Std Deviation 46.1 fL (36.4-46.3) 03/24/22 22:25 RDW Coeff of [place]an 13.2 % (11.5-14.5) 03/24/22 22:25 Plt Count 162 K/uL (130-400) 03/24/22 22:25 MPV 11.2 fL (9.4-12.4) 03/24/22 22: Immature Gran % (Auto) 0.5 % 03/24/22: Neut % (Auto) 56.2 % 03/24/22: Lymph % (Auto) 29.1 % 03/24/22: [place] % (Auto) 9.7 % 03/24/22: Eos % (Auto) 3.7 % 03/24/22: Baso % (Auto) 0.8 % 03/24/22: Neut # (Auto) 5.00 K/uL (1.4-6.5) 03/24/22: Lymph # (Auto) 2.58 K/uL (1.2-3.4) 03/24/22: [place] # (Auto) 0.86 K/uL (0.24-0.82) H 03/24/22: Eos # (Auto) 0.33 K/uL (0-0.50) 03/24/22: Baso # (Auto) 0.07 K/uL (0-0.2) 03/24/22: Immature Gran # (Auto) 0.04 K/uL (0.00-0.02) H 03/24/22 22: Sodium 137 mmol/L (136-145) 03/24/22 22: Potassium 3.5 mmol/L (3.5-5.1) 03/24/22 22: Chloride 101 mmol/L (98-107) 03/24/22 22: Carbon Dioxide 24 mmol/L (21-32) 03/24/22 22:25 Anion Gap 12 (3-11) H 03/24/22 22:25 BUN 36 mg/dl (6-23) H 03/24/22 22:25 Creatinine 2.03 mg/dl (0.6-1.4) H 03/24/22: Est Cr Clr Drug Dosing 34.0 ml/min 03/24/22 22:25 Est GFR ( Amer) 36.1 ml/min 03/24/22 22: Est GFR (Non-Af Amer) 31.1 ml/min 03/24/22 22:25 BUN/Creatinine Ratio 17.7 (10-20) 03/24/22 22:25 Glucose 138 mg/dl (70-99(Fasting)) H 03/24/22 22:25 Lactate 2.4 mmol/L (0.4-2.0) H* 03/25/22 01:29 Calcium 10.9 mg/dl (8.5-10.1) H 03/24/22 22:25 Magnesium 1.5 mg/dl (1.7-2.4) L 03/24/22 22:25 Total Bilirubin 0.2 mg/dl (0.2-1.0) 03/24/22 22:25 AST 33 U/L (13-39) 03/24/22 22:25 ALT 24 U/L (7-52) 03/24/22 22:25 Alkaline Phosphatase 74 U/L (34-104) 03/24/22 22:25 Troponin I High Sens 5.3 pg/ml (0-20) 03/24/22 22:25 Total Protein 6.7 gm/dl (6.0-8.3) 03/24/22 22:25 Albumin 4.0 gm/dl (3.4-5.0) 03/24/22 22:25 Globulin 2.7 gm/dl (2.5-4.0) 03/24/22 22:25 Albumin/Globulin Ratio 1.5 (0.9-2) 03/24/22 22:25 TSH 2.539 uIu/ml (0.300-4.500) 03/24/22 22:25 Ethyl Alcohol mg/dL 179.3 mg/dl (<10.0) H 03/24/22 22:25 SARS-CoV-2 (PCR) NEGATIVE (Negative) 03/24/22 23:02 Code Status & VTE Plan Code Status Full code VTE Prophylaxis Plan VTE Prophylaxis will be ordered: Yes PG Care Time/CCT Total # of Minutes Spent Total Time Spent with Patient: Total time spent is greater than 50% in coordination of care (as documented) at patient's floor/unit and/or counseling patient: Coding Level of Care Code 98301 Initial Inpt Care Lvl 3 Diagnoses Chest pain R07.9 Coronary artery disease I25.10 Hypertension I10 ASCVD (arteriosclerotic cardiovascular disease) I25.10 Hypomagnesemia E83.42 Acute kidney injury N17.9 Hypercholesterolemia E78.00 Type 2 diabetes mellitus E11.9 Peripheral neuropathy G62.9 Gastroesophageal reflux disease K21.9 Alcohol intoxication F10.929
[2022-03-25] MEDS ORDERED: MAGNESIUM SULFATE / D5W 1 GM/100 ML BAG IV ONE (01:12)
[2022-03-25] MEDS ORDERED: SODIUM CHLORIDE 0.9% 1000ML 1,000 ML IV SCH (01:15)
[2022-03-25] MEDS ORDERED: NITROGLYCERIN SL 0.4 MG/TAB TAB SL PRN (02:31)
[2022-03-25] MEDS ORDERED: ACETAMINOPHEN 325 MG TAB PO PRN (02:31)
[2022-03-25] MEDS ORDERED: POLYETHYLENE (MIRALAX) 17 GM PACK PO PRN (02:31)
[2022-03-25] MEDS ORDERED: ONDANSETRON INJ 2 MG/ML 2 ML VIAL IV PRN (02:31)
[2022-03-25 07:09] LABS: Basophils # (auto) 0.04 K/uL (0-0.2); Basophils % (auto) 0.6 %; Eosinophils # (auto) 0.25 K/uL (0-0.50); Eosinophils % (auto) 3.6 %; Hematocrit (blood only) 33.7 % (40.1-51.0); Hemoglobin 11.4 g/dl (14.0-18.0); Immature Granulocytes # (auto) 0.03 K/uL (0.00-0.02); Immature Granulocytes % (auto) 0.4 %; Lymphocytes # (auto) 2.23 K/uL (1.2-3.4); Lymphocytes % (auto) 32.3 %; Mean Corpuscular Hemoglobin 32.6 pg (25.0-34.0); Mean Corpuscular Hgb Conc 33.8 g/dL (32.0-36.0); Mean Corpuscular Volume 96.3 fL (80.0-100.0); Mean Platelet Volume 10.6 fL (9.4-12.4); Monocytes # (auto) 0.66 K/uL (0.24-0.82); Monocytes % (auto) 9.6 %; Neutrophils # (auto) 3.69 K/uL (1.4-6.5); Neutrophils % (auto) 53.5 %; Platelet Count 140 K/uL (130-400); RDW Coefficient of Variation 13.2 % (11.5-14.5); RDW Standard Deviation 46.6 fL (36.4-46.3)
--- NOTE | 2022-03-25 07:42 | Hospitalist Progress Note ---
Date of Service March 25, 2022 Assessment & Plan (1) Chest pain: Plan: Chest pain/CAD/hypertension/ASCVD/stented coronary artery- The patient will be admitted to telemetry for serial cardiac enzymes, serial EKG's, cardiac rhythm monitoring and a 2-D echocardiogram with Dopplers. Repeat EKG- is uncharged, normal sinus rhythm, normal ECG Repeat troponin 4.8 Patient symptomatology is somewhat difficult to completely characterize due to his active alcohol intake during this interval. Continue aspirin, atorvastatin, metoprolol tartrate, nitroglycerin sublingual as needed, prasugrel. Holding quinapril and indapamide due to acute kidney injury (2) Coronary artery disease: Plan: See above (3) Hypertension: Plan: See above (4) ASCVD (arteriosclerotic cardiovascular disease): Plan: See above (5) Hypomagnesemia: Plan: Magnesium 1.5 on admission, and potassium 3.5 Magnesium will replace with 2 g and magnesium sulfate IV. Today K= 3.9, Mg= 1.6, only increase 0.1 with 2g yesterday will give 4g with a goal to replete above 2.0 Will hold indapamide and quinapril as noted, to allow potassium to normalize as well. No ectopy on monitor, so unlikely, but still possible, that symptomatology may been related to rapid heart rate (6) Acute kidney injury: Plan: Creatinine 2.03 upon admission, with baseline 0.85. Likely combination of golfing for 2 days with insufficient water intake, alcohol use, and being on indapamide and quinapril in the situations both of which will be held. (7) Hypercholesterolemia: Plan: Continue atorvastatin 80 mg daily (8) Type 2 diabetes mellitus: Plan: On no specific treatment, and glucose was 138 upon admission (9) Peripheral neuropathy: Plan: Continue pregabalin (10) Gastroesophageal reflux disease: Plan: Continue omeprazole/pantoprazole daily (11) Alcohol intoxication: Plan: Alcohol level 179.3 upon admission Part of his symptomatology may be related to direct irritation of stomach lining and reflux by alcohol He received 2 L normal saline in ED via IV bolus, and will be placed on NSS at 80 mils per hour x1 more liter Patient remains in hospital longer than lunchtime to suppertime, will consider [facility] protocol Admission and Anticipated Discharge Date Admission Date: March 25, 2022 Subjective Doing well this morning. No further chest pain since 30 minute episode at home yesterday afternoon. Denies dyspnea, nausea, vomiting, lightheadedness, dizziness. Physical Exam Physical Exam: The patient is awake, alert and oriented 3, well developed and well nourished, normocephalic and atraumatic, lying in bed and in no acute distress. Neck--supple. Heart--normal S1 and S2. No murmurs, rubs or gallops. Lungs--clear bilaterally, no respiratory distress, no accessory muscle use. Abdomen--normal bowel sounds and soft. Nontender. Extremities--no cyanosis or clubbing. No edema. There are good distal pulses b/l. Neurologic--cranial nerves II through XII grossly intact. Psychiatric--normal affect. Results & Data Results & Data ([facility]) Vital Signs (Past 12 Hours) Vital Signs Temp Pulse Pulse Resp BP BP Pulse Ox 03/25/22 07:05 36.4 C L 71 18 146/80 H 96 03/25/22 02:36 36.3 C L 74 15 115/75 95 03/25/22 01:29 72 17 106/55 L 92 03/24/22 23:30 67 17 92/54 L 95 03/24/22 23:20 70 17 93/49 L 95 03/24/22 23:10 70 19 93/44 L 95 03/24/22 23:00 72 16 92/54 L 91 03/24/22 22:50 69 12 93/55 L 93 03/24/22 22:40 70 17 88/51 L 91 03/24/22 22:34 85/49 L 03/24/22 22:31 71 21 92/53 L 94 03/24/22 23:28 69 95 03/24/22 22:33 71 19 96/56 L 94 03/24/22 22:33 94 03/24/22 22:23 36.7 C 71 19 96/56 L 94 O2 Del Method 03/25/22 07:05 Room Air 03/25/22 02:36 Room Air 03/25/22 01:29 03/24/22 23:30 03/24/22 23:20 03/24/22 23:10 03/24/22 23:00 03/24/22 22:50 03/24/22 22:40 03/24/22 22:34 03/24/22 22:31 03/24/22 23:28 Room Air 03/24/22 22:33 Room Air 03/24/22 22:33 Room Air 03/24/22 22:23 Room Air
[2022-03-25 07:49] LABS: Albumin Globulin Ratio 1.4 (0.9-2); Albumin Level 3.6 gm/dl (3.4-5.0); BUN Creatinine Ratio 25.8 (10-20); Bilirubin,Total 0.3 mg/dl (0.2-1.0); Calcium 9.8 mg/dl (8.5-10.1); Creatinine Clr Calc Pharmacy 53.2 ml/min; Est GFR (African American) 68.1 ml/min; Est GFR (Non-African American) 58.8 ml/min; Globulin 2.5 gm/dl (2.5-4.0); Potassium 3.9 mmol/L (3.5-5.1); Total Protein 6.1 gm/dl (6.0-8.3)
[2022-03-25] MEDS: PREGABALIN 100 MG CAP PO SCH ×2 (08:07→13:54)
[2022-03-25] MEDS ORDERED: ATORVASTATIN 40 MG TAB PO SCH (09:00)
[2022-03-25] MEDS ORDERED: PSYLLIUM or GUAR GUM FIBER POWDER PACKET PO SCH (09:00)
[2022-03-25] MEDS ORDERED: PRASugrel TAB 10 MG TAB PO SCH (09:00)
[2022-03-25] MEDS ORDERED: CHOLECALCIFEROL 1,000 UNITS 25 MCG TAB PO SCH (09:00)
[2022-03-25] MEDS ORDERED: PANTOprazole 40 MG TAB PO SCH (09:00)
[2022-03-25] MEDS ORDERED: DULoxetine HCL 20 MG CAP PO SCH (09:00)
[2022-03-25] MEDS ORDERED: METOPROLOL TARTRATE 25 MG TAB PO SCH (09:00)
--- NOTE | 2022-03-25 09:04 | Electrocardiogram Report ---
Test Reason : Blood Pressure : / mmHG Vent. Rate : 071 BPM Atrial Rate : 071 BPM P-R Int : 168 ms QRS Dur : 094 ms QT Int : 378 ms P-R-T Axes : 069 049 039 degrees QTc Int : 410 ms Poor data quality, interpretation may be adversely affected Normal sinus rhythm Normal ECG When compared with ECG of 28-MAY-2016 13:45, No significant change was found Confirmed by Abdulaziz Marin ([id number]) on 03/25/2022 9:04:06 AM Referred By: REFERRED SELF Confirmed By:Abdulaziz Marin
--- NOTE | 2022-03-25 09:04 | Electrocardiogram Report ---
Test Reason : Blood Pressure : / mmHG Vent. Rate : 069 BPM Atrial Rate : 069 BPM P-R Int : 178 ms QRS Dur : 102 ms QT Int : 390 ms P-R-T Axes : 062 039 036 degrees QTc Int : 417 ms Normal sinus rhythm Normal ECG When compared with ECG of 24-MAR-2022 22:20, No significant change was found Confirmed by Abdulaziz Marin ([id number]) on 03/25/2022 9:04:14 AM Referred By: REFERRED SELF Confirmed By:Abdulaziz Marin
--- NOTE | 2022-03-25 09:05 | XRay Report ---
XR chest 1V portable HISTORY: Atypical chest pain. weakness COMPARISON: Chest 06/09/2020. FINDINGS: The lungs are clear. Cardiac silhouette is normal in size. No pleural effusions. No pneumot horax. IMPRESSION: No acute process. ACT 112: Negative or not required by law. Electronically signed by: Jaziel Boss M.D. 03/25/2022 9:04 AM
[2022-03-25] MEDS: MAGNESIUM SULFATE / D5W 1 GM/100 ML BAG IV SCH ×2 (12:33→14:37)
--- NOTE | 2022-03-25 15:41 | Discharge Summary ---
Date of Service March 25, 2022 Admission HPI Per Admitting Provider The patient is a 76-year-old male with a past medical history including diabetes mellitus type 2, peripheral neuropathy, CAD, nephrolithiasis, hypercalcemia, ASCVD, hypercholesterolemia, hypertension, diverticulosis, GERD, and osteoarthritis. Patient reports that he was golfing for the past 2 days, and did not have as much fluid intake as he probably should have. At the end of day this evening, he had 2 drinks, and a glass of red wine. After sitting down on his patio, at about 2 hours prior to arrival here, he developed some centralized chest pain on a scale of 7 out of 10 that lasted about 30 minutes. He reports he did vomit once and he thinks he may have actually lost consciousness during this timeframe. He does have a history of coronary artery stent, and because of symptoms, he called family, and was brought to emergency department for assessment. Of note, the patient's history is considered partially reliable, as his alcohol level was 179.3 upon testing in the ED. Other significant laboratories: Calcium 10.9, magnesium 1.5, potassium 3.5, creatinine 2.03, glucose 138, hemoglobin 12.3, hematocrit 35.8, lactate 2.9. Patient received from the ED: 2 L normal saline IV bolus, Zofran 4 mg IV, m agnesium 1 g IV. Patient did report feeling somewhat better after receiving IV fluid rehydration Admission Exam Per Admitting Provider The patient is awake, alert and oriented 3, well developed and well nourished, normocephalic and atraumatic, lying in bed and in no acute distress. HEENT--PERRL, EOMI, mucous membranes and oropharynx dry. Neck--supple. No JVD. No bruits. Thyroid normal, trachea midline, no adenopathy. Heart--normal S1 and S2. No murmurs, rubs or gallops. Lungs--clear bilaterally, no respiratory distress, no accessory muscle use. Abdomen--normal bowel sounds and soft. Nontender. Nondistended, no hernias or masses, no organomegaly. Extremities--no cyanosis or clubbing. No edema. There are good distal pulses b/l. Dermatologic--normal skin turgor, normal color, no abnormal lymph nodes, no rash. Neurologic--cranial nerves II through XII grossly intact. Rheumatologic--normal range of motion. Psychiatric--normal affect. Principal Diagnosis Chest Pain Discharge Exam The patient is awake, alert and oriented 3, well developed and well nourished, normocephalic and atraumatic, lying in bed and in no acute distress. Neck--supple. Heart--normal S1 and S2. No murmurs, rubs or gallops. Lungs--clear bilaterally, no respiratory distress, no accessory muscle use. Abdomen--normal bowel sounds and soft. Nontender. Extremities--no cyanosis or clubbing. No edema. There are good distal pulses b/l. Neurologic--cranial nerves II through XII grossly intact. Psychiatric--normal affect. Discharge Data Allergies Allergy/AdvReac Type Severity Reaction Status Date / Time clopidogrel Allergy Intermediate hives Verified 03/24/22 23:53 Penicillins Allergy Intermediate HIVES/RASH Verified 03/24/22 23:53 Iodinated Contrast Media AdvReac Severe RASH/BP Verified 03/24/22 23:53 DROPPED AND KIDNEY FAILURE Consultations 03/25/22 00:24 ED Decision to Admit Stat Ordered Studies Cardiac Enzymes 03/24/22 03/25/22 03/25/22 Range/Units 22:25 06:43 06:43 AST 33 28 (13-39) U/L Troponin I High Sens 5.3 4.8 (0-20) pg/ml CBC 03/24/22 03/25/22 Range/Units 22:25 06:43 WBC 8.88 6.90 (4.8-10.8) K/ul RBC 3.74 L 3.50 L (4.63-6.08) M/uL Hgb 12.3 L 11.4 L (14.0-18.0) g/dl Hct 35.8 L 33.7 L (40.1-51.0) % Plt Count 162 140 (130-400) K/uL Neut # (Auto) 5.00 3.69 (1.4-6.5) K/uL Lymph # (Auto) 2.58 2.23 (1.2-3.4) K/uL [place] # (Auto) 0.86 H 0.66 (0.24-0.82) K/uL Eos # (Auto) 0.33 0.25 (0-0.50) K/uL Baso # (Auto) 0.07 0.04 (0-0.2) K/uL Comprehensive Metabolic Panel 03/24/22 03/25/22 Range/Units 22:25 06:43 Sodium 137 139 (136-145) mmol/L Potassium 3.5 3.9 (3.5-5.1) mmol/L Chloride 101 106 (98-107) mmol/L Carbon Dioxide 24 26 (21-32) mmol/L BUN 36 H 31 H (6-23) mg/dl Creatinine 2.03 H 1.20 D (0.6-1.4) mg/dl Glucose 138 H 108 H (70-99(Fasting)) mg/dl Calcium 10.9 H 9.8 (8.5-10.1) mg/dl AST 33 28 (13-39) U/L ALT 24 21 (7-52) U/L Alkaline Phosphatase 74 74 (34-104) U/L Total Protein 6.7 6.1 (6.0-8.3) gm/dl Albumin 4.0 3.6 (3.4-5.0) gm/dl Intake and Output 03/25/22 03/25/22 03/25/22 06:59 14:59 22:59 Intake Total 1820 / 1820 1092 / 1572 480 / 1572 Output Total 425 / 425 Balance 1820 / 1820 1092 / 1147 55 / 1147 Intake: IV 1700 / 1700 1092 / 1092 Magnesium Sulfate / D5w 1 gm In 200 / 200 100 / 100 100 ml @ 50 mls/hr IV Q2H JIM Rx#:[id number] Sodium Chloride 0.9% 1000ML 1, 1500 / 1500 992 / 992 000 ml @ 80 mls/hr IV .[id number] JIM Rx#:[id number] Oral 120 / 120 480 / 480 Output: Urine 425 / 425 Other: Weight 81.6 kg Weight Measurement Method Standing Scale Hospital Course (1) Chest pain: Chest pain/CAD/hypertension/ASCVD/stented coronary artery- Pt presented with 30 minutes of chest pain that occurred at home after golfing for 2 days. He had limited fluid intake and 3 alcoholic beverages prior to the chest pain developing. He had one episode of vomiting at home. Serial ECGs and cardiac enzymes were negative, did not indicate any acute ischemic changes. He was monitored on telemetry without any events. Echo did not show any regional wall motion abnormalities. Of note his alcohol level on admission was 179. He did not have any recurrence of his chest pain during his stay. He will follow up woth cardiology for a stress ecvho. (2) Coronary artery disease: See above (3) Hypertension: Continue home medications (4) ASCVD (arteriosclerotic cardiovascular disease): See above (5) Hypomagnesemia: Magnesium 1.5 on admission, and potassium 3.5; magnesium repleted with 2g in ED. It came up to 1.6 and was repleted with another 2g. Will hold indapamide and quinapril as noted, to allow potassium to normalize as well, can resume on discharge. (6) Acute kidney injury: Creatinine 2.03 upon admission, with baseline 0.85. Likely combination of golfing for 2 days with insufficient water intake, alcohol use, and being on indapamide and quinapril in the situations both of which will be held. Came down to 1.2 with fluids. (7) Hypercholesterolemia: Continue atorvastatin 80 mg daily (8) Type 2 diabetes mellitus: On no specific treatment, and glucose was 138 upon admission (9) Peripheral neuropathy: Continue pregabalin (10) Gastroesophageal reflux disease: Continue omeprazole/pantoprazole daily (11) Alcohol intoxication: Alcohol level 179.3 upon admission Part of his symptomatology may be related to direct irritation of stomach lining and reflux by alcohol He received 2 L normal saline in ED via IV bolus, and will be placed on NSS at 80 mils per hour x1 more liter Patient remains in hospital longer than lunchtime to suppertime, will consider AWSS protocol Total Time Total Time Spent Total Time Spent (In Minutes): <30 Discharge Plan Discharge Items Patient Disposition: Home - Self-Care Reason For Visit: CHEST PAIN, DAKOTA, HYPOMAGNESEMIA, DEHYDRATION Discharge Diagnosis: Dehydration , Chest Pain Activity: Resume your previous activity Non-emergency contact: Primary Care Provider Call non-emergency contact if: your symptoms worsen Follow-up/Referrals: Giuseppe Ramos MD [Primary Care Provider] - Diet: Regular Addtl Attending Provider Instructions: You were admitted to the hospital for chest pain. We monitored your cardiac enzymes and your ECGs (measures the cardiac activity of your heart) and did not see any signs of an acute heart attack. We would like you to follow up with your radiator mechanic. Your creatine, a number that is indicative of kidney function, was initially elevated, but improved with fluids. Make sure you continue to stay well hydrated. A discharge summary will be sent to your primary care physician to ensure continuity of care. Please bring this discharge summary with you to your next office appointment so that your provider can review it at that time. Follow-up appointments: Make a follow-up appointment with your PCP within the next week. It is very important that you follow up with them shortly after discharge from the hospital. - Make a follow up appointment with your radiator mechanic. Medications: Your medication list has been reviewed and reconciled upon discharge to ensure accuracy and continuity of care. An updated list of all your medications is included with your hospital discharge paperwork. Please review this list closely, and make note of any changes. CONTACT YOUR PRIMARY CARE PROVIDER if you experience any of the following: Difficulty following your treatment plan, or difficulty taking medications CALL 911 OR GO TO THE EMERGENCY DEPARTMENT if you experience any of the following: Sudden, severe abdominal pain or nausea/vomiting Severe chest pain, or chest pain that radiates (moves) to your jaw or arm Sudden, severe shortness of breath or difficulty breathing Thank you for allowing us to participate in your care. Discharge instructions for CHF exacerbation patients Pending Studies at Discharge: No Stand-Alone Forms: My [facility] Medications and DC Order Prescriptions: Continued prasugrel 10 mg tablet 10 mg PO DAILY Qty: 90 3RF duloxetine 20 mg capsule,delayed release(DR/EC) 20 mg PO DAILY Qty: 90 3RF atorvastatin 80 mg tablet 80 mg PO DAILY Qty: 90 3RF omeprazole 20 mg capsule,delayed release(DR/EC) 20 mg PO DAILY Qty: 90 3RF quinapril 40 mg tablet 40 mg PO DAILY Qty: 90 3RF nitroglycerin 0.4 mg tablet, sublingual 0.4 mg SL Q5M PRN (Reason: chest pain) Qty: 25 1RF pregabalin 100 mg capsule 100 mg PO TID Qty: 270 3RF metoprolol tartrate 25 mg tablet 25 mg PO DAILY cholecalciferol (vitamin D3) 25 mcg (1,000 unit) capsule 25 mcg PO DAILY multivitamin Tablet 1 tab PO DAILY Fish Oil 900-1,400 mg capsule,delayed release(DR/EC) 1 cap PO DAILY indapamide 1.25 mg tablet 1.25 mg PO QAM Qty: 90 3RF loratadine [Claritin] 10 mg tablet 10 mg PO DAILY PRN (Reason: Congestion) aspirin 81 mg Tablet,Delayed Release (/Ec) 81 mg PO [id number] Rx Instructions: TAKES MON, WED, & FRI. Saccharomyces boulardii 250 mg Capsule 500 mg PO DAILY Metamucil 3.4 gram/5.4 gram Powder 1 tbsp PO DAILY Rx Instructions: mix into at least 8 oz of water or juice before administering Discharge Orders: Discharge Order (Routine); Ordered 03/25/22 Ordered By: Lakesha Rey/Other Patient Handouts: First Aid: Heart Attacks, Heart Attack Dc, Your Heart Is at Risk Admission Data Admit Date/Time: 03/25/22 01:10 Attending Provider: Pranav Chadwick Admit Provider: Ranjeet Fry Primary Care Provider: Giuseppe Ramos Other Providers: Ranjeet Fry Other Interventions: Discharge Summary Assessment (RN) Last Done: 03/25/22 16:12 Supervising Physician Co-Signing Physician Notes I personally examined the patient and verified all humphrey points of history and exam, discussed case, and agree with decision making with Dr Mendez Feels much better and feels up to going home. Chest pain has long since resolved. Notes that he also had similar symptoms once whenever he was dehydrated on a flightand definitely thinks that he exercised in the heat too much did not keep up with hydration, and then compounded the problem with alcohol. He has not had exertional symptoms recently either. Vitals noted, in general he is awake and alert pleasant no distress. HEENT normocephalic atraumatic mucous membranes moist. Breathing unlabored no accessory muscle use good effort. Skin shows no rashes no pallor or icterus. Neuro without focal deficits. Chest painvery likely GI related from dehydration as well as alcohol intakeMI ruled out with EKGs, serial troponins, echo all looking very reassuring. Given his pre-existing coronary disease, stress test is certainly reasonablebut can be pursued as an outpatient with his primary radiator mechanic, particularly given that the alternative diagnosis of GI discomfort from dehydration/alcohol is far more likely given his current acute situation DAKOTA/ARFfrom dehydrationresolved with IV fluids. Outpatient BMP Safe/stable for home, otherwise as above
--- NOTE | 2022-03-25 18:25 | Billing Data ---
Date of Service March 25, 2022 Coding Level of Care Code D/C DAY MANAGEMENT <30 MINS
[2022-03-26] MEDS ORDERED: ASPIRIN 81 MG ECTAB PO SCH (09:00)
== END 2022-03-25 16:42 | disposition home or self-care (01) ==
LOC: ED 22:18 → INTOOBSV 03-25 01:10 → 2S 03-25 01:10 → SUATTDRO 03-25 01:10 → 2S 03-25 02:06
DX: Z88.8 Allergy status to other drugs, medicaments and biological substances; Z87.891 Personal history of nicotine dependence; F10.129 Alcohol abuse with intoxication, unspecified; E78.00 Pure hypercholesterolemia, unspecified; Z88.0 Allergy status to penicillin; I25.10 Atherosclerotic heart disease of native coronary artery without angina pectoris; E11.9 Type 2 diabetes mellitus without complications; Z91.041 Radiographic dye allergy status; E83.42 Hypomagnesemia; K21.9 Gastro-esophageal reflux disease without esophagitis; Z79.82 Long term (current) use of aspirin; R07.89 Other chest pain; I95.9 Hypotension, unspecified; I10 Essential (primary) hypertension; Z79.899 Other long term (current) drug therapy